=== PATIENT | female | born 2000 | race Two or more races ===

== ENCOUNTER 2020-08-15 14:07 | Outpatient (CLI) | payer OTHER ==
--- NOTE | 2020-08-15 17:27 | Ultrasound Report ---
PROCEDURE: OB Biophysical Profile INDICATIONS: irregular heart rate TECHNIQUE: Real-time scanning was performed of the fetus, with image documentation and biometric clara surements. Biophysical profile was also obtained. Endovaginal scanning: Not performed COMPARISON: None. FINDINGS: General: A single living intrauterine gestation is present. Presentation: Breech Placenta: Placental position is posterior, without previa. Amniotic fluid index: 14 cm heart rate: 150 beats per minute. Maternal cervical canal: 4.0 cm long; normal length is 2.5 cm or more. biometrics: Biparietal diameter: 6.7 cm, 27 weeks, 1 day Head circumference: 25.7 cm, 27 weeks, 6 days Abdominal circumference: 21.7 cm, 26 weeks, 1 day Femur length: 5.1 cm, 27 weeks, 3 days Estimated gestational age from initial scan: not applicable. Composite gestational age from present scan: 27 weeks, 1 day Estimated weight :993 g Measurement variability in biometric dating: +/- 10 days from 12-20 weeks gestation, +/- 2 weeks from 20-30 weeks gestation, +/- 3 weeks at 30 weeks gestation or later. Biophysical profile: Tone: 2 points. Movement: 2 points. Respiration: 2 points. Largest pocket of fluid: 2 points. IMPRESSION: 1. Single live intrauterine gestation in breech position with a composite gestational age of 27 weeks , 1 day. 2. 8/8 biophysical profile. Reviewed by: Ainsley Gilbert MD on 08/15/2020 5:26 PM PDT Approved by: Ainsley Gilbert MD on 08/15/2020 5:26 PM PDT Station ID: [id number]
--- NOTE | 2020-08-15 17:29 | Ultrasound Report ---
PROCEDURE: OB Biophysical Profile INDICATIONS: irregular heart rate TECHNIQUE: Real-time scanning was performed of the fetus, with image documentation and biometric clara surements. Biophysical profile was also obtained. Endovaginal scanning: Not performed COMPARISON: None. FINDINGS: General: A single living intrauterine gestation is present. Presentation: Breech Placenta: Placental position is posterior, without previa. Amniotic fluid index: 14 cm heart rate: 150 beats per minute. Maternal cervical canal: 4.0 cm long; normal length is 2.5 cm or more. biometrics: Biparietal diameter: 6.7 cm, 27 weeks, 1 day Head circumference: 25.7 cm, 27 weeks, 6 days Abdominal circumference: 21.7 cm, 26 weeks, 1 day Femur length: 5.1 cm, 27 weeks, 3 days Estimated gestational age from initial scan: not applicable. Composite gestational age from present scan: 27 weeks, 1 day Estimated weight :993 g Measurement variability in biometric dating: +/- 10 days from 12-20 weeks gestation, +/- 2 weeks from 20-30 weeks gestation, +/- 3 weeks at 30 weeks gestation or later. Biophysical profile: Tone: 2 points. Movement: 2 points. Respiration: 2 points. Largest pocket of fluid: 2 points. IMPRESSION: 1. Single live intrauterine gestation in breech position with a composite gestational age of 27 weeks , 1 day. 2. 88 biophysical profile. Reviewed by: Ainsley Gilbert MD on 08/15/2020 5:27 PM PDT Approved by: Ainsley Gilbert MD on 08/15/2020 5:27 PM PDT Station ID: [id number]
[2020-08-15 17:50] VITALS: BP 113/64
--- NOTE | 2020-08-15 18:33 | PROVIDER PROGRESS NOTE ---
- HPI Chief Complaint: Other Current : Current EDU 11/17/20 Gestation 26 Weeks and 4 Days 1 Para 0 Vital Signs Temperature 37.0 C 08/15/20 17:25 Heart Rate 87 08/15/20 17:25 Respiratory Rate 16 08/15/20 17:25 Blood Pressure 113/64 08/15/20 17:25 O2 Saturation 99 08/15/20 17:25 Temperature 37.0 C 08/15/20 17:25 Heart Rate 87 08/15/20 17:25 Respiratory Rate 16 08/15/20 17:25 Blood Pressure 113/64 08/15/20 17:25 O2 Saturation 99 08/15/20 17:25 - Procedures OB Procedure Performed: NST Diagnosis/Indication for NST: Other NST Procedure: NST Procedure Start Date 08/15/20 Start Time 14:28 Stop Time 14:50 Vibroacoustic Stimulation Used No Patient States Movement Yes - Plan Plan: S: [place] and her present to [facility] for NST secondary to irregular heart and rhythm noted by doppler during routine OB visit. O: NST reactive. Baseline 150, moderate variability, + accels, no decels No contractions appreciated via tocometry BPP 8/8 (MILES WNL) A: 20yo @ 26.5wks gestation Irregular heart rate in P: Referral initiated to [facility] for consultation and echocardiogram Pt released home with precautions. Pt verbalized understanding and agrees to above plan. Denies further questions or concerns at this time. DIAGNOSIS: Irregular heart rate in
== END 2020-08-15 17:45 | disposition home or self-care (01) ==
LOC: WFO 14:07 → FBP 14:09 → WFO 17:45
PROVIDERS: ATTEND Nurse Practitioner Obstetrics & Gynecology
DX: O36.8320 Maternal care for abnormalities of the fetal heart rate or rhythm, second trimester, not applicable or unspecified (principal); Z3A.26 26 weeks gestation of pregnancy
CPT/HCPCS: 59025; 76816; 76819

== ENCOUNTER 2020-08-28 11:28 | Outpatient (CLI) | payer OTHER ==
[2020-08-28 13:05] LABS: HGB - HEMOGLOBIN 10.7 g/dL (12.0-16.0); MEAN CORPUSCULAR HGB CONC 32.9 g/dL (32.0-36.0); MEAN CORPUSCULAR VOLUME 88.1 fL (81.0-99.0); MEAN PLATELET VOLUME 10.6 fL (7.9-10.8); RED BLOOD COUNT 3.69 10^6/uL (4.20-5.40); RED CELL DISTRIBUTION WIDTH 12.4 % (12.0-15.0); WHITE BLOOD COUNT 9.3 x10^3/uL (4.8-10.8)
== END 2020-08-28 11:29 | disposition home or self-care (01) ==
LOC: LAB 11:28
PROVIDERS: ATTEND Nurse Practitioner Obstetrics & Gynecology
DX: Z36.89 Encounter for other specified antenatal screening (principal)
CPT/HCPCS: 36415; 82950; 85027